=== PATIENT | male | born 1940 | race Caucasian/White ===

== ENCOUNTER 2016-11-06 20:03 | Inpatient (IN) | payer OTHER, MEDICARE, BC ==
[~2016-11-06] VITALS: Ht 172.7 cm; Wt 83.4 kg
--- NOTE | ~2016-11-06 | PUL ---
PATIENT'S NAME: TACHO SALAMANCA [facility] AGE: 76 Y [address] ROOM: [address] [address] LOCATION: G3N ADMIT DATE: 11/06/2016 Pulmonary DISCHARGE DATE: 11/13/2016 FAMILY PHYSICIAN: Claudio Beasley MD ATTENDING PHYSICIAN: Neena Osuna CORRECTED COPY -- / KLD NAME OF PROCEDURE: Bedside Spirometry DATE OF PROCEDURE: November 12, 2016 TECH: Nuno, CLINICAL DATA SPECIALIST REASON FOR EXAM: Shortness of breath PROCEDURE PERFORMED: Spirometry with bronchodilator assessment. RESULTS: Pre bronchodilator FVC was 2.73 liters, 71% of predicted; post bronchodilator FVC was 2.77 liters 73% of predicted. Pre bronchodilator FEV1 was 1.88 liters, 69% of predicted; post-bronchodilator FEV1 was 1.84 liters, 67% of predicted. FEV1/FVC was 69, 96% of predicted. IMPRESSION: Spirometry data suggestive of mild airflow obstruction. Lung volumes measurement is needed to rule out any concomitant restrictive changes. MD JUAN OQUENDO/penelope /[id number] CORRECTED COPY -- / KLD dtt: 11/19/16 1731 , DARSHANA GOLDEN dtd: 11/16/16 1542
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
--- NOTE | ~2016-11-06 | ECHO ---
Transthoracic Echocardiography Report (TTE) Demographics Patient Name TACHO SALAMANCA Date of Study 11/10/2016 Patient Number [id number] Visit Number [id number] Date of 1940 Room Number G3309 Accession Number [id number] Gender Male Age 76 year(s) Referring Obanitha Rowley Screener Perfumer Jordon Oliveira RVT, Physician MD APPLE House MD Physician Interpreting Emma Corbett MD Site Medical Director Physician Supervising Ordering Physician Jorge Recinos MD/SUSAN NAILS Nurse Stress Collection Manager Conclusions Contractility Score Summary Normal Left Ventricular contractility was noted. Summary Very technically difficult exam. Patient unable to lay left lateral decubitus due to cervical spine fracture. The estimated left ventricular ejection fraction is 55-60%. Mild concentric left ventricular hypertrophy. Diastolic assessment reveals Grade II pseudonormal diastolic function . Mild mitral annular calcification. Mild calcification of the mitral valve. Procedure Type of Study TTE procedure:2D Echocardiogram. Procedure Date Date: 11/10/2016 Start: 07:22 AM Study Location: Inpatient Portable Technical Quality: Limited visualization due to patient immobility. Indications:Syncope. Appropriate Use Criteria: 8 Patient Status: Routine HR: 84 bpm BP: 131/75 mmHg M-Mode/2D Measurements LV Diastolic Dimension: 3.87 cm LV Systolic Dimension: 2.18 cm LV Septum Diastolic: 1.13 cm LV PW Diastolic: 1.15 cm Cardiac Output: 4.04 l/min LA volume: 52 ml RV Diastolic Dimension: 2.56 cm LVOT: 2 cm EF Estimated: 60 % LVOT VTI: 15.3 cm LV Stroke volume: 48.04 ml TAPSE: 2.31 cm TDI-S': 8.55 cm/s Doppler Measurements AV Peak Velocity: 0.92 m/s MV Peak E-Wave: 0.61 m/s AV Peak Gradient: 3.39 mmHg MV Peak A-Wave: 0.55 m/s AV Mean Gradient: 2 mmHg MV E/A Ratio: 1.1 LVOT Peak Velocity: 0.85 m/s MV P1/2t: 53 msec E' Septal Velocity: 0.05 m/s A' Septal Velocity: 0.09 m/s E' Lateral Velocity: 0.07 m/s A' Lateral Velocity: 0.1 m/s Findings Left Ventricle Mild concentric left ventricular hypertrophy. Diastolic assessment reveals Grade II pseudonormal diastolic function . Right Ventricle Normal right ventricle structure and function. Left Atrium Normal left atrial size. There is no evidence of patent foramen ovale or atrial septal defect by color Doppler. Right Atrium Normal right atrial size. Mitral Valve Mild mitral annular calcification. Mild calcification of the mitral valve. Aortic Valve The aortic valve is mildly sclerotic. Tricuspid Valve Normal tricuspid valve structure and function. Pulmonic Valve Pulmonic valve is not well seen. Pericardial Effusion No evidence of pericardial effusion. Miscellaneous Visualized portions of the aortic root and ascending aorta appear normal in size. Pleural Effusion No evidence of pleural effusion. Contractility Score LV regional wall motion:(0-Non visualized 1-Normal 2-Hypokinesis 3-Akinesis 4-Dyskinesis 5-Aneurysm) Signature dtt: Aric Carter (cardio) dtd: 11/10/16 0722 Physician Self Edit
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
[2016-11-06 20:30] LABS: BASOPHIL # 0.1 K/uL (0.0-0.2); BASOPHIL % 0.4 %; HEMATOCRIT 39.8 % (37.0-53.0); HEMOGLOBIN 14.4 g/dL (11.0-16.0); IMMATURE GRANULOCYTE # 0.2 K/uL (0.0-0.3); IMMATURE GRANULOCYTE % 1.1 %; LYMPHOCYTE # 0.6 K/uL (0.8-4.0); LYMPHOCYTE % 4.4 %; MCH 34.6 pg (27.0-34.0); MCHC 36.2 gm/dL (32.0-36.5); MCV 95.7 fl (83.0-98.0); MONOCYTE # 0.6 K/uL (0.0-1.0); MONOCYTE % 4.5 %; NEUTROPHIL # (ANC) 12.2 K/uL (1.4-9.0); NEUTROPHIL % 89.6 %; NRBC % 0 /100WBC (0-0.00); PLATELET COUNT 223 K/uL (150-450); RBC 4.16 M/uL (3.50-5.50); RDW-CV 13.9 % (11.9-14.6); WBC 13.6 K/uL (4.0-11.0)
[2016-11-06 20:37] LABS: INR - (THERAPEUTIC) 1.01 (0.92-1.07); PROTIME 10.6 SECONDS (9.8-11.4); PTT 26 SECONDS (25-32)
[2016-11-06 20:45] LABS: ANION GAP 18.4 (10.0-19.0); CALCIUM 8.1 mg/dL (8.5-10.5); CREATININE 0.8 mg/dL (0.6-1.3); POTASSIUM 3.4 mMol/L (3.7-5.1); TOTAL BILIRUBIN 0.6 mg/dL (0.0-1.5); TOTAL PROTEIN 7.4 g/dL (6.0-8.4)
[2016-11-07] MEDS ORDERED: ATIVAN 0.5MG0.5 MG PO (00:06)
[2016-11-07] MEDS ORDERED: AZULFIDINE 500 MG PO (00:07)
[2016-11-07] MEDS ORDERED: NORVASC5 MG PO (00:08)
[2016-11-07] MEDS ORDERED: OMEPRAZOLE40 MG PO (00:09)
[2016-11-07] MEDS ORDERED: ZESTORETIC 20-1 EACH PO (00:10)
[2016-11-07] MEDS ORDERED: ASPIRIN LO-DOSE81 MG PO (00:11)
[2016-11-07] MEDS ORDERED: CRESTOR5 MG PO (00:12)
[2016-11-07] MEDS ORDERED: ASCORBIC ACID500 MG PO (00:13)
[2016-11-07] MEDS ORDERED: VITAMIN B12-FO1 EACH PO (00:14)
[2016-11-07] MEDS ORDERED: ATARAX25 MG PO (00:16)
[2016-11-09 21:16] LABS: BASOPHIL # 0.1 K/uL (0.0-0.2); BASOPHIL % 0.9 %; EOSINOPHIL % 0.6 %; HEMOGLOBIN 11.7 g/dL (11.0-16.0); IMMATURE GRANULOCYTE % 0.3 %; LYMPHOCYTE # 1.5 K/uL (0.8-4.0); LYMPHOCYTE % 22.5 %; MCH 34.8 pg (27.0-34.0); MCHC 36.6 gm/dL (32.0-36.5); MCV 95.2 fl (83.0-98.0); MONOCYTE # 0.9 K/uL (0.0-1.0); MONOCYTE % 13.5 %; MPV 9.3 fl (9.4-12.4); NEUTROPHIL # (ANC) 4.2 K/uL (1.4-9.0); NEUTROPHIL % 62.2 %; NRBC % 0 /100WBC (0-0.00); PLATELET COUNT 186 K/uL (150-450); RBC 3.36 M/uL (3.50-5.50); RDW-CV 13.6 % (11.9-14.6); WBC 6.7 K/uL (4.0-11.0)
[2016-11-09 21:30] LABS: ANION GAP 12.4 (10.0-19.0); BLOOD UREA NITROGEN 9 mg/dL (6-24); CALCIUM 8.5 mg/dL (8.5-10.5); CHLORIDE 92 mMol/L (96-110); CO2 27 mMol/L (22-32); CREATININE 0.7 mg/dL (0.6-1.3); POTASSIUM 3.4 mMol/L (3.7-5.1); SODIUM 128 mMol/L (135-145)
[2016-11-10 08:45] LABS: ANION GAP 11.5 (10.0-19.0); BLOOD UREA NITROGEN 10 mg/dL (6-24); CALCIUM 8.7 mg/dL (8.5-10.5); CHLORIDE 94 mMol/L (96-110); CO2 29 mMol/L (22-32); CPK 231 IU/L (35-332); CREATININE 0.7 mg/dL (0.6-1.3); MAGNESIUM 2.4 mg/dL (1.8-2.6); POTASSIUM 3.5 mMol/L (3.7-5.1); SODIUM 131 mMol/L (135-145)
[2016-11-10 14:30] LABS: CPK 222 IU/L (35-332)
[2016-11-11 05:44] LABS: ANION GAP 11.8 (10.0-19.0); BLOOD UREA NITROGEN 12 mg/dL (6-24); CALCIUM 8.8 mg/dL (8.5-10.5); CHLORIDE 97 mMol/L (96-110); CO2 27 mMol/L (22-32); CREATININE 0.7 mg/dL (0.6-1.3); MAGNESIUM 2.3 mg/dL (1.8-2.6); POTASSIUM 3.8 mMol/L (3.7-5.1); SODIUM 132 mMol/L (135-145)
[2016-11-13] MEDS ORDERED: COLACE100 MG PO (17:00)
[2016-11-13] MEDS ORDERED: FOLIC ACID1 MG PO (17:01)
[2016-11-13] MEDS ORDERED: LOPRESSOR25 MG PO (17:01)
[2016-11-13] MEDS ORDERED: NORCO 5-325 TA1 EACH PO (17:21)
== END 2016-11-13 18:30 | disposition disaster alternative care site (69) | DRG 551 ==
LOC: GACC 20:03 → G3N 21:40
PROVIDERS: Emergency Medicine; Internal Medicine Cardiovascular Disease; Nurse Practitioner Family; ADMIT Neurological Surgery
DX: S12.000A Unspecified displaced fracture of first cervical vertebra, initial encounter for closed fracture (principal); S06.5X9A Traumatic subdural hemorrhage with loss of consciousness of unspecified duration, initial encounter; I77.74 Dissection of vertebral artery; J96.01 Acute respiratory failure with hypoxia; E87.1 Hypo-osmolality and hyponatremia; G62.9 Polyneuropathy, unspecified; S12.100A Unspecified displaced fracture of second cervical vertebra, initial encounter for closed fracture; S12.300A Unspecified displaced fracture of fourth cervical vertebra, initial encounter for closed fracture; S12.001A Unspecified nondisplaced fracture of first cervical vertebra, initial encounter for closed fracture; V47.5XXA Car driver injured in collision with fixed or stationary object in traffic accident, initial encounter; F10.129 Alcohol abuse with intoxication, unspecified; I10 Essential (primary) hypertension; E78.5 Hyperlipidemia, unspecified; Z98.1 Arthrodesis status; K21.9 Gastro-esophageal reflux disease without esophagitis; Z79.82 Long term (current) use of aspirin; Z88.2 Allergy status to sulfonamides; F17.210 Nicotine dependence, cigarettes, uncomplicated; R73.9 Hyperglycemia, unspecified
CPT/HCPCS: G0480; J2270

== ENCOUNTER → 2016-11-06 | Outpatient (CLI) | payer OTHER, MEDICARE, BC ==
[~2016-11-06] MED LIST: ASCORBIC ACID500 MG PO; ASPIRIN LO-DOSE81 MG PO; ATARAX25 MG PO; ATIVAN 0.5MG0.5 MG PO; AZULFIDINE 500 MG PO; COLACE100 MG PO; CRESTOR5 MG PO; FOLIC ACID1 MG PO; LOPRESSOR25 MG PO; NORCO 5-325 TA1 EACH PO; NORVASC5 MG PO; OMEPRAZOLE40 MG PO; VITAMIN B12-FO1 EACH PO; ZESTORETIC 20-1 EACH PO
== END | disposition disaster alternative care site (69) ==
LOC: GAMB 19:29
DX: S14.109A Unspecified injury at unspecified level of cervical spinal cord, initial encounter (principal); S12.000A Unspecified displaced fracture of first cervical vertebra, initial encounter for closed fracture; S12.100A Unspecified displaced fracture of second cervical vertebra, initial encounter for closed fracture; S12.300A Unspecified displaced fracture of fourth cervical vertebra, initial encounter for closed fracture; M54.9 Dorsalgia, unspecified; R11.0 Nausea; Z79.899 Other long term (current) drug therapy; V89.2XXA Person injured in unspecified motor-vehicle accident, traffic, initial encounter
CPT/HCPCS: A0422; A0425; A0426; J2405